=== PATIENT | female | born 1960 | race Caucasian/White ===

== ENCOUNTER 2021-09-03 16:12 | Emergency (ER) | payer OTHER, SELFPAY ==
[2021-09-03 16:12] VITALS: BP 177/89; PULSE 87; RESP 18; TEMP 36.8; O2SAT 98; BMI 24.8
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
[2021-09-03 16:30] VITALS: BP 183/87; PULSE 89; O2SAT 98
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
[2021-09-03 17:00] VITALS: BP 191/85; PULSE 89; O2SAT 98
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
[2021-09-03 17:30] VITALS: BP 173/80; PULSE 85; O2SAT 99
[2021-09-03 18:00] VITALS: BP 169/85; PULSE 88; O2SAT 98
[2021-09-03 19:31] LABS: Chloride 103 mmol/L (98-107); Sodium 139 mmol/L (136-145)
[2021-09-03 19:32] LABS: Potassium 3.4 mmoL/L (3.5-5.1)
[2021-09-03 19:34] LABS: Basophils # 0.2 K/mm3 (0-0.2); Basophils % 1.6 % (0.1-2.0); Blood Urea Nitrogen 12 mg/dl (7-17); Creatinine Clearance Estimated 83 mL/min (50-200); Eosinophils # 0.1 K/mm3 (0.0-0.4); Eosinophils % 0.6 % (0.1-12.0); Estimated Glomerular Filt Rate 85 ml/min (>60); GFR (African American) 103 ML/MIN (>60); Hematocrit 44.6 % (37.0-47.0); Hemoglobin 15.2 g/dL (12.2-16.2); Lymphocytes # 1.9 K/mm3 (0.7-4.5); Lymphocytes % 13.1 % (10-50); Mean Corpuscular Hemoglobin 32.3 pg (27.0-31.2); Mean Corpuscular Volume 94.9 fl (81-99); Mean Platelet Volume 7.9 fl (7.4-10.4); Monocytes # 0.7 K/mm3 (0.1-1.0); Monocytes % 5.2 % (1.7-9.3); Neutrophils # 11.5 K/mm3 (1.8-7.8); Neutrophils % 79.6 % (37.0-80.0); Platelet Count 284 K/mm3 (142-424); Red Cell Distribution Width 13.3 % (11.5-17.5); White Blood Count 14.4 K/mm3 (4.8-10.8)
[2021-09-03 19:35] LABS: Anion Gap 11.4 mEq/L (5-15); Calcium 9.7 mg/dl (8.4-10.2); Carbon Dioxide 28 mmol/L (22.0-30.0); Glucose 121 mg/dl (74-100)
[2021-09-03 21:34] VITALS: BP 145/89; PULSE 88; RESP 17; TEMP 36.7; O2SAT 96
== END 2021-09-03 21:36 | disposition home or self-care (01) ==
PROVIDERS: Emergency Provider Emergency Medicine
DX: S13.9XXA Sprain of joints and ligaments of unspecified parts of neck, initial encounter (principal); R07.81 Pleurodynia; J47.9 Bronchiectasis, uncomplicated; M54.2 Cervicalgia; R51.9 Headache, unspecified; R00.0 Tachycardia, unspecified; K80.20 Calculus of gallbladder without cholecystitis without obstruction; R91.1 Solitary pulmonary nodule; V87.7XXA Person injured in collision between other specified motor vehicles (traffic), initial encounter
CPT/HCPCS: 70450; 70498; 71045; 71250; 72125; 72170; 80048; 85025; 96374; 99285